=== PATIENT | male | born 1955 | race Caucasian/White ===

== ENCOUNTER 2017-03-20 11:19 | Inpatient (IN) | payer OTHER ==
[~2017-03-20] VITALS: Ht 180.3 cm; Wt 101.8 kg
[2017-03-20] MEDS ORDERED: TENORMIN 50 MG50 MG PO (23:20)
[2017-03-20] MEDS ORDERED: ASPIR 8181 MG PO (23:20)
[2017-03-20] MEDS ORDERED: BENTYL 10MG CAP10 MG PO (23:21)
[2017-03-20] MEDS ORDERED: PLAVIX 75 MG TA75 MG PO (23:21)
[2017-03-20] MEDS ORDERED: KLONOPIN TAB 00.5 MG PO (23:21)
[2017-03-20] MEDS ORDERED: BENADRYL 25MG C25 MG PO (23:22)
[2017-03-20] MEDS ORDERED: FLOVENT DISKUS50 MCG INH (23:23)
[2017-03-20] MEDS ORDERED: ISOSORBIDE MON120 MG PO (23:24)
[2017-03-20] MEDS ORDERED: LEVOXYL200 MCG PO (23:24)
[2017-03-20] MEDS ORDERED: CLARITIN 10MG T10 MG PO (23:25)
[2017-03-20] MEDS ORDERED: NITROSTAT0.4 MG SL (23:26)
[2017-03-20] MEDS ORDERED: ZOFRAN4 MG PO (23:26)
[2017-03-20] MEDS ORDERED: PROTONIX40 MG PO (23:26)
[2017-03-20] MEDS ORDERED: HEALTHYLAX17 GM PO (23:27)
[2017-03-20] MEDS ORDERED: COMPAZINE 10MG10 MG PO (23:28)
[2017-03-20] MEDS ORDERED: ZANTAC150 MG PO (23:28)
[2017-03-20] MEDS ORDERED: PHENERGAN 25 MG25 M1 PO (23:28)
[2017-03-21 01:17] LABS: RED BLOOD COUNT 4.13 M/UL (4.20-5.50); WHITE BLOOD COUNT 5.5 K/UL (4.5-11.0)
[2017-03-22 05:04] LABS: HEMOGLOBIN 12.4 gm/dl (14.0-17.5); RED BLOOD COUNT 4.25 M/UL (4.20-5.50); WHITE BLOOD COUNT 5.4 K/UL (4.5-11.0)
[2017-03-22 05:20] LABS: BUN/CREATININE RATIO 20 (0-10)
[2017-03-22] MEDS ORDERED: SENOKOT-S TABL1 EACH PO (16:38)
[2017-03-22] MEDS ORDERED: ALBUTEROL2.5 MG/3 M INH (23:18)
[2017-03-22] MEDS ORDERED: COMBIVENT RESPIM4 GM INH (23:19)
[2017-03-22] MEDS ORDERED: LIPITOR80 MG PO (23:20)
== END 2017-03-22 19:00 | disposition home or self-care (01) | DRG 390 ==
LOC: CTU 11:19 → M/S 22:05
PROVIDERS: Physician Assistant; ADMIT Internal Medicine Infectious Disease
DX: K56.609 Unspecified intestinal obstruction, unspecified as to partial versus complete obstruction (principal); K59.09 Other constipation; I12.9 Hypertensive chronic kidney disease with stage 1 through stage 4 chronic kidney disease, or unspecified chronic kidney disease; N18.3 Chronic kidney disease, stage 3 (moderate); D64.9 Anemia, unspecified; I25.10 Atherosclerotic heart disease of native coronary artery without angina pectoris; Z95.1 Presence of aortocoronary bypass graft; Z85.118 Personal history of other malignant neoplasm of bronchus and lung; E03.9 Hypothyroidism, unspecified; E78.5 Hyperlipidemia, unspecified; K21.9 Gastro-esophageal reflux disease without esophagitis; J44.9 Chronic obstructive pulmonary disease, unspecified; Z79.01 Long term (current) use of anticoagulants; K58.9 Irritable bowel syndrome, unspecified; F41.9 Anxiety disorder, unspecified; Z80.9 Family history of malignant neoplasm, unspecified; Z87.891 Personal history of nicotine dependence
CPT/HCPCS: 36415; 71010; 74000; 74250; 80048; 83605; 85027; 93005; 94640; 94664; J7030

== ENCOUNTER → 2020-09-29 | Outpatient (CLI) | payer OTHER ==
[~2020-09-29] MED LIST: ALBUTEROL2.5 MG/3 M INH; ASPIR 8181 MG PO; BENADRYL 25MG C25 MG PO; BENTYL 10MG CAP10 MG PO; CLARITIN 10MG T10 MG PO; COMBIVENT RESPIM4 GM INH; COMPAZINE 10MG10 MG PO; FLOVENT DISKUS50 MCG INH; HEALTHYLAX17 GM PO; ISOSORBIDE MON120 MG PO; KLONOPIN TAB 00.5 MG PO; LEVOXYL200 MCG PO; LIPITOR80 MG PO; NITROSTAT0.4 MG SL; PHENERGAN 25 MG25 M1 PO; PLAVIX 75 MG TA75 MG PO; PROTONIX40 MG PO; SENOKOT-S TABL1 EACH PO; TENORMIN 50 MG50 MG PO; ZANTAC150 MG PO; ZOFRAN4 MG PO
== END ==
LOC: CT 14:20
DX: C34.11 Malignant neoplasm of upper lobe, right bronchus or lung (principal); R91.1 Solitary pulmonary nodule
CPT/HCPCS: 36415; 71250; 82565

== ENCOUNTER → 2020-12-28 | Outpatient (CLI) | payer OTHER | LOC: CT 12:54 | DX: C34.11 Malignant neoplasm of upper lobe, right bronchus or lung (principal); R91.8 Other nonspecific abnormal finding of lung field | CPT/HCPCS: 71250 ==

== ENCOUNTER → 2021-04-06 | Outpatient (CLI) | payer OTHER ==
[2021-04-06 14:39] LABS: HEMOGLOBIN 15.5 gm/dl (14.0-17.5); RED BLOOD COUNT 5.08 M/UL (4.20-5.50); WHITE BLOOD COUNT 9.2 K/UL (4.5-11.0)
== END ==
LOC: CT 12:58
PROVIDERS: Internal Medicine Hematology & Oncology
DX: C34.11 Malignant neoplasm of upper lobe, right bronchus or lung (principal); R91.1 Solitary pulmonary nodule; J98.4 Other disorders of lung; Z98.890 Other specified postprocedural states; Z90.89 Acquired absence of other organs
CPT/HCPCS: 36415; 71250; 80053; 85025

== ENCOUNTER → 2021-09-16 | Outpatient (CLI) | payer OTHER ==
[2021-09-16 13:04] LABS: RED BLOOD COUNT 5.22 M/UL (4.20-5.50); WHITE BLOOD COUNT 10.3 K/UL (4.5-11.0)
== END ==
LOC: CT 07-18 11:30
PROVIDERS: Internal Medicine Hematology & Oncology
DX: C34.11 Malignant neoplasm of upper lobe, right bronchus or lung (principal); R91.8 Other nonspecific abnormal finding of lung field
CPT/HCPCS: 36415; 71250; 80053; 85025

== ENCOUNTER → 2022-03-10 | Outpatient (CLI) | payer OTHER | LOC: KOH-I 13:34 | DX: C34.11 Malignant neoplasm of upper lobe, right bronchus or lung (principal); R91.8 Other nonspecific abnormal finding of lung field | CPT/HCPCS: 71250 ==